=== PATIENT | male | born 1960 | race Native Hawaiian/Other Pacific Islander ===

== ENCOUNTER 2020-08-30 17:36 | Emergency (ER) | payer OTHER ==
[~2020-08-30] VITALS: Ht 149.9 cm; Wt 77.1 kg
[2020-08-30 18:00] VITALS: BP 111/75; TEMP 98
[2020-08-30 18:35] LABS: PLATELET COUNT 202 K/uL (142-355)
[2020-08-30] MEDS ORDERED: MULTI VITAMIN A1 TAB PO (22:41)
[2020-08-30] MEDS ORDERED: METACMUCIL PO (22:44)
[2020-08-30] MEDS ORDERED: CRESTOR5 MG PO (22:45)
[2020-08-30] MEDS ORDERED: VITAMIN C250 M2 PO (22:46)
[2020-08-30] MEDS ORDERED: VITAMIN D31000 UNI4 PO (22:47)
[2020-08-30] MEDS ORDERED: ZINC50 M1 PO (22:49)
[2020-08-30] MEDS ORDERED: TYLENOL PO (22:50)
[2020-08-30] MEDS ORDERED: PAXIL20 MG PO (22:51)
[2020-08-30] MEDS ORDERED: PROVERA10 MG PO (22:52)
[2020-08-30] MEDS ORDERED: OLAN2.5T2 PO (22:54)
[2020-08-30] MEDS ORDERED: DIVALPROEX500 M1 PO (22:55)
== END 2020-08-30 20:16 | disposition other institution (70) ==
LOC: ED 17:36
PROVIDERS: Family Medicine
DX: R46.89 Other symptoms and signs involving appearance and behavior (principal); R56.9 Unspecified convulsions; Z11.52 Encounter for screening for COVID-19; Z04.6 Encounter for general psychiatric examination, requested by authority
CPT/HCPCS: 80053; 85027; 87635; 93005; 99283; U0003